=== PATIENT | male | born 1960 | race Caucasian/White ===

== ENCOUNTER → 2018-01-24 00:42 | Outpatient (CLI) | payer MEDICAID, SELFPAY ==
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
== END ==
PROVIDERS: PCP Family Medicine; Visit Provider Family Medicine
DX: Z12.2 Encounter for screening for malignant neoplasm of respiratory organs (principal); Z87.891 Personal history of nicotine dependence
CPT/HCPCS: G0297

== ENCOUNTER 2020-06-02 19:37 | Inpatient (IN) | payer MEDICAID, SELFPAY ==
[2020-06-02] VITALS (16 sets, daily range): BP systolic 131–156; BP diastolic 74–89; PULSE 82–97; RESP 16; TEMP 36.9; O2SAT 80–100
--- NOTE | 2020-06-02 19:45 | DI.CT_ITS ---
EXAM: CT HEAD CERVICAL SPINE WO CLINICAL HISTORY: fall, intoxicated, r/o fx/bleed. TECHNIQUE: Imaging Protocol: Axial computed tomography images with coronal and sagittal reformatted images were created and reviewed COMPARISON: No exams were available for comparison FINDINGS: BRAIN: There are no skull fractures nor fluid in the visualized paranasal sinuses. There is no evidence of intracranial hemorrhage, mass effect, or shift of midline structures. There are no extra-axial fluid collections. The ventricles are not enlarged or shifted and there is no blo od within the ventricular system nor within the basal cisterns. CERVICAL SPINE: There is no evidence of fracture nor listhesis. No significant prevertebral soft tissue swelling. N o facet malalignment evident. In the right lamina of L2 there is a 8 x 6 millimeter lucency which contains air. This is unrelated to trauma. There is degenerative change in the facet joint at this level as well as other facet join ts. There is mild retrolisthesis of C4 on C5 which is most probably related to degenerative changes in the facet joints. There is no evidence of jumped facet.. No evidence of spinal canal stenosis. IMPRESSION: No acute intracranial findings on this noninfused CT scan of the brain. No evidence of cervical spine fracture, malalignment, nor acute compromise of the cervical spinal can al. Degenerative changes throughout the cervical spine including an air containing cyst in the right pedi mary-lamina of C2 which is adjacent to advanced degenerative changes in the right facet joint. RADIATION DOSE DELIVERED: 1,456.22mGy.cm Total DLP DATA REPOSITORY: All CT scans at this facility are submitted to the National Radiology Data Registry (NRDR) Dose Index Registry (DIR) with the [employer] (ACR). RADIATION OPTIMIZATION: All CT scans at this facility use at least one of these dose optimization te chniques: automated exposure control; mA and/or kV adjustment per patient size (includes targeted exa ms where dose is matched to clinical indication); or iterative reconstruction.
--- NOTE | 2020-06-02 19:45 | RT.EKG_ITS ---
APPROVED REPORT Exam: Resting ECG Patient Location: E HR:88 bpm ECG Measurements Heart Rate 88 AXIS OR 181 P 94 QRSd 97 QRS 19 QT 387 T 49 QTc 467 Conclusion Sinus rhythm...normal P axis, V-rate 60- 99 I have reviewed and interpreted ECG and agree with software generated interpretation. No STEMI
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
[2020-06-02 20:13] LABS: Abs Immature Grans 0.02 10^3/uL (0.0-0.06); Absolute Basophil Count 0.06 10^3/uL (0.0-0.2); Absolute Eosinophil Count 0.16 10^3/uL (0.0-0.7); Absolute Lymphocyte Count 2.22 10^3/uL (1.2-3.4); Absolute Monocyte Count 0.77 10^3/uL (0.1-0.8); Absolute Neutrophil Count 3.74 10^3/uL (1.2-6.7); Basophils % 0.9; Eosinophils % 2.3; HCT 37.3 % (40.0-50.0); HGB 12.6 g/dL (13.5-17.5); Immature Grans % 0.3; Lymphocytes % 31.9; MCHC 33.8 % (32.0-36.0); MCV 94.7 fL (80-95); MPV 9.1 fL (8.0-11.0); Neutrophils % 53.6; Nucleated RBC 0 %; Platelet Count 213 10^3/uL (130-400); RBC 3.94 10^6/uL (4.36-5.78); RDW 11.9 % (11.8-14.1); RDW-SD 41.8 fL; WBC 6.97 10^3/uL (4.4-10.8)
[2020-06-02 20:27] LABS: ALT 28 U/L (16-63); AST 29 U/L (15-37); Albumin 3.9 g/dL (3.4-5.0); Alkaline Phosphatase 71 U/L (46-116); Anion Gap 12.5 mmol/L (3-11); BUN 10 mg/dL (7-18); Bilirubin, Total 0.4 mg/dL (0.2-1.0); CO2 19.5 mmol/L (21.0-32.0); CREATININE 0.79 mg/dL (0.70-1.30); Chloride 94 mmol/L (98-107); ETHANOL BLOOD 320.8 mg/dL (<3); Glucose 91 mg/dL (74-106); Potassium 3.8 mmol/L (3.5-5.1); Sodium 126 mmol/L (136-145); Total Protein 7.8 g/dL (6.4-8.2)
--- NOTE | 2020-06-02 21:07 | DI.RAD_ITS ---
EXAM: XR FEMUR LT CLINICAL HISTORY: fall, prox femur pain, r/o fx. TECHNIQUE: 2D digital imaging was performed. COMPARISON: No exams were available for comparison FINDINGS: There is a left hip fracture involving the neck and intertrochanteric region with vertical fracture l ine extending into the subtrochanteric region. Also noted is deformity in mid-lower ipsilateral femur from healed angled fracture site with hardware still evident at this level comprised of 4 screws, 2 of which are fractured. There is, however, no evidence of fracture at this level. There is a launch in the orientated sclerotic medullary bone les ion seen in the distal femur which is either a bone infarct or enchondroma. Advanced degenerative ch anges in the ipsilateral knee are noted. IMPRESSION: Left femoral neck inter-subtrochanteric region fracture. Chronic abnormal findings in the mid-lower ipsilateral femur as described above related to prior heal ed fracture site. DATA REPOSITORY: RADIATION DOSE DELIVERED:
--- NOTE | 2020-06-02 21:07 | DI.RAD_ITS ---
EXAM: XR PELVIS AP CLINICAL HISTORY: fall, prox femur pain, r/o fx. TECHNIQUE: 2D digital imaging was performed. COMPARISON: No exams were available for comparison FINDINGS: There is a fracture of the femoral vxqx-kwqjateqyberqclok-bidcnvdliomlaxv region. Right hip appears unremarkable. No obvious other fractures in the pelvis. IMPRESSION: Left hip fracture. DATA REPOSITORY: RADIATION DOSE DELIVERED:
--- NOTE | 2020-06-02 21:15 | DI.CT_ITS ---
EXAM: CT PELVIC WO CLINICAL HISTORY: r/o left hip fx. TECHNIQUE: Imaging Protocol: Axial computed tomography images with coronal and sagittal reformatted images were created and reviewed CONTRAST MATERIAL: Intravenous: none Oral: None COMPARISON: Plain films reviewed FINDING: PELVIS: OSSEOUS: Is a comminuted fracture of the left femoral neck and intertrochanteric region with some dis placement and fracture extension into the subtrochanteric level. Femoral head is intact and there ar e no acetabular fractures nor fractures of the pubic rami. The right side of the bony pelvis appears unremarkable.. No evidence of right hip fracture.No lytic lesions identified. ANTERIOR ABDOMINAL WALL/GI:No evidence of significant anterior abdominal wall nor inguinal hernia in the pelvis evident.No obvious bowel obstruction. No evidence of appendicitis.No evidence of acute si gmoid diverticulitis.No free fluid in the pelvis. LYMPH NODES: There is no intrapelvic nor inguinal adenopathy. URINARY BLADDER: No calculi nor obvious masses evident REPRODUCTIVE: The prostate gland is not enlarged.. IMPRESSION: 1. Comminuted angulated fracture of the left femoral neck and intertrochanteric region with extension into the subtrochanteric aspect of the left femur. 2. Slight prominence of the ipsilateral ileo psoas muscle probably related to strain 3. RADIATION DOSE DELIVERED: 461.96mGy.cm Total DLP DATA REPOSITORY: All CT scans at this facility are submitted to the National Radiology Data Registry (NRDR) Dose Index Registry (DIR) with the [employer] (ACR). RADIATION OPTIMIZATION: All CT scans at this facility use at least one of these dose optimization te chniques: automated exposure control; mA and/or kV adjustment per patient size (includes targeted exa ms where dose is matched to clinical indication); or iterative reconstruction.
--- NOTE | 2020-06-02 21:26 | DI.VRAD_ITS ---
PROCEDURE INFORMATION: Exam: XR Pelvis Exam date and time: 06/02/2020 9:05 PM Age: 59 years old Clinical indication: Injury or trauma; Fall; Blunt trauma (contusions or hematomas); Left; Hip TECHNIQUE: Imaging protocol: XR pelvis. Views: 1 or 2 view. COMPARISON: No relevant prior studies available. FINDINGS: There is a lucency running through the subtrochanteric region of the left femur. This could represent a nondisplaced fracture. Bony pelvis appears intact. The hip joints are well maintained. Pubic rami are unremarkable. IMPRESSION: 1. Lucency involving the subtrochanteric region of the left femur. This could represent a nondisplaced fracture. 2. The remainder of the bony pelvis is unremarkable Dictated and Authenticated by: Lucian Slater MD. Ordering:JOAN Garza MD
--- NOTE | 2020-06-02 21:28 | DI.VRAD_ITS ---
PROCEDURE INFORMATION: Exam: XR Left Femur Exam date and time: 06/02/2020 9:06 PM Age: 59 years old Clinical indication: Injury or trauma; Fall; Blunt trauma; Hip and thigh or upper leg; Left; Injury details: Best imaging possible d/t PT rom; Prior surgery TECHNIQUE: Imaging protocol: XR Left femur. Views: 2 views. COMPARISON: No relevant prior studies available. FINDINGS: As noted on the pelvis film, there is a lucency involving the subtrochanteric region of the left femur. This could represent a nondisplaced fracture. One the may wish to correlate with CT. Femoral head neck appear intact. There is a old healed fracture of the distal femur. Multiple screws are present. There is a skin area of sclerosis involving the distal femur which could represent a bone infarct. There are marked degenerative changes of the knee joint. IMPRESSION: 1. Lucency involving the subtrochanteric region of the left femur. This could represent a nondisplaced fracture. One may wish to correlate with CT. 2. Old healed fracture of the distal femoral shaft. Dictated and Authenticated by: Lucian Slater MD. Ordering:JOAN Garza MD
--- NOTE | 2020-06-02 21:56 | DI.VRAD_ITS ---
PROCEDURE INFORMATION: Exam: CT Head Without Contrast Exam date and time: 06/02/2020 8:41 PM Age: 59 years old Clinical indication: Injury or trauma; Blunt trauma (contusions or hematomas); Consciousness not specified; Injury date: 06/02/20; Injury details: Fall, +etoh, TECHNIQUE: Imaging protocol: Computed tomography of the head without contrast. Radiation optimization: All CT scans at this facility use at least one of these dose optimization techniques: automated exposure control; mA and/or kV adjustment per patient size (includes targeted exams where dose is matched to clinical indication); or iterative reconstruction. COMPARISON: No relevant prior studies available. FINDINGS: Brain: There is no acute intracranial hemorrhage, mass effect or midline shift.There is no large acute territorial cerebral infarct. Focal hyperdensity in the left temporal lobe region is thought to represent choroid plexus calcification. Cerebral ventricles: No ventriculomegaly. Bones/joints: There is slight displacement of the left nasal bone, which may be acute or chronic in nature. Paranasal sinuses: Visualized sinuses are unremarkable. No fluid levels. Mastoid air cells: There is trace fluid in the right mastoid air cells. Soft tissues: Unremarkable. IMPRESSION: 1. No acute intracranial hemorrhage, mass effect or midline shift. 2. Slight displacement of the left nasal bone may be from acute or chronic injury. Correlate with clinical findings. PROCEDURE INFORMATION: Exam: CT Cervical Spine Without Contrast Exam date and time: 06/02/2020 8:41 PM Age: 59 years old Clinical indication: Injury or trauma; Blunt trauma (contusions or hematomas); Consciousness not specified; Injury date: 06/02/20; Injury details: Fall, +etoh, TECHNIQUE: Imaging protocol: Computed tomography images of the cervical spine without contrast. Radiation optimization: All CT scans at this facility use at least one of these dose optimization techniques: automated exposure control; mA and/or kV adjustment per patient size (includes targeted exams where dose is matched to clinical indication); or iterative reconstruction. COMPARISON: No relevant prior studies available. FINDINGS: Bones/joints: No acute fracture. There is grade 1 retrolisthesis of C4 on C5. A 1 cm cyst containing foci of air is seen in the right facet of C2. Discs/Spinal canal/Neural foramina: Multilevel degenerative changes are noted with neural foraminal narrowing most prominent at the left C3-C4 level. No significant spinal canal stenosis. Lungs: Lung apices are normal. Soft tissues: Unremarkable. IMPRESSION: No acute fracture. Dictated and Authenticated by: Kayla Matta MD. Ordering:JOAN Garza MD
--- NOTE | 2020-06-02 22:10 | DI.VRAD_ITS ---
PROCEDURE INFORMATION: Exam: CT Pelvis Without Contrast; Skeletal Exam date and time: 06/02/2020 9:30 PM Age: 59 years old Clinical indication: Injury or trauma; Blunt trauma (contusions or hematomas); Injury date: 06/02/20; Injury details: Fall, left hip pain TECHNIQUE: Imaging protocol: Computed tomography images of the pelvis without contrast. Exam focused on the skeletal structures. Radiation optimization: All CT scans at this facility use at least one of these dose optimization techniques: automated exposure control; mA and/or kV adjustment per patient size (includes targeted exams where dose is matched to clinical indication); or iterative reconstruction. COMPARISON: CR XR PELVIS AP 06/02/2020 8:49 PM FINDINGS: There is a comminuted fracture involving the femoral neck and intertrochanteric region. There is slight posterior displacement of the greater trochanter. There is extension into the subtrochanteric region. There is slight lateral angulation. Femoral head is intact. The acetabulum pubic rami are intact. The right side of the bony pelvis appears intact. There is some edema within the left adductor muscles likely representing a tear or strain. There is some mild edema of the subcutaneous fat. IMPRESSION: 1. Comminuted angulated fracture involving the femoral neck and intertrochanteric region with extension into the subtrochanteric femoral shaft. 2. Edema of the adductor muscles likely representing strain or tear. Dictated and Authenticated by: Lucian Slater MD. Ordering:JOAN Garza MD
[2020-06-02 22:25] LABS: Source Nasopharynx
[2020-06-02 23:05] LABS: COVID-19 PCR Negative (Negative); Influenza A PCR Negative (Negative); Influenza B PCR Negative (Negative); RSV PCR Negative (Negative)
[2020-06-03] VITALS (21 sets, daily range): BP systolic 107–193; BP diastolic 65–130; PULSE 69–97; RESP 14–19; TEMP 35–37.9; O2SAT 93–100
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
[2020-06-03] MEDS: Normal Saline 500 ML IV (00:39)
[2020-06-03] MEDS: Normal Saline Flush 10 ML SYR (01:43)
[2020-06-03] MEDS: Pantoprazole 40 MG VIAL IVP (01:44)
[2020-06-03] MEDS: Normal Saline 1,000 ML 150 ML IV (01:44)
[2020-06-03] MEDS: ACETAMINOPHEN 1,000 MG/100 ML BTL 400 MG IVPB ×4 (01:45→19:51)
[2020-06-03] MEDS: Thiamine 200 MG/2 ML VIAL (01:50)
[2020-06-03] MEDS: MAGNESIUM SULFATE 8.12 MEQ, MULTIVITAMIN 10 ML, THIAMINE 100 MG, FOLIC ACID 1 MG in Nor... 168.867 MG IV (02:05)
[2020-06-03] MEDS: Folic Acid 50 MG/10 ML VIAL (02:13)
--- NOTE | 2020-06-03 02:20 | NUR.NOTE ---
Patient undergarment and gown is wet. Patient was asked numerous times to be changed but refused each time he is asked
[2020-06-03 06:46] LABS: Abs Immature Grans 0.03 10^3/uL (0.0-0.06); Absolute Basophil Count 0.05 10^3/uL (0.0-0.2); Absolute Eosinophil Count 0.18 10^3/uL (0.0-0.7); Absolute Lymphocyte Count 2.46 10^3/uL (1.2-3.4); Absolute Monocyte Count 0.91 10^3/uL (0.1-0.8); Absolute Neutrophil Count 4.76 10^3/uL (1.2-6.7); Basophils % 0.6; Eosinophils % 2.1; HCT 36.2 % (40.0-50.0); HGB 12.3 g/dL (13.5-17.5); Immature Grans % 0.4; Lymphocytes % 29.3; MCH 31.7 pg (27.0-33.0); MCV 93.3 fL (80-95); MPV 9.2 fL (8.0-11.0); Monocytes % 10.8; Neutrophils % 56.8; Nucleated RBC 0 %; Platelet Count 214 10^3/uL (130-400); RBC 3.88 10^6/uL (4.36-5.78); RDW 11.9 % (11.8-14.1); RDW-SD 40.5 fL; WBC 8.39 10^3/uL (4.4-10.8)
[2020-06-03] MEDS: Normal Saline Flush 10 ML SYR IVP ×3 (06:48→13:18)
[2020-06-03 06:57] LABS: Anion Gap 12.8 mmol/L (3-11); BUN 8 mg/dL (7-18); CO2 17.2 mmol/L (21.0-32.0); CREATININE 0.79 mg/dL (0.70-1.30); Calcium 8.1 mg/dL (8.5-10.1); Chloride 107 mmol/L (98-107); Glucose 58 mg/dL (74-106); Sodium 137 mmol/L (136-145)
[2020-06-03 07:02] LABS: ETHANOL BLOOD 103.4 mg/dL (<3)
[2020-06-03] MEDS: DEXTROSE 5%-0.9% SALINE 1,000 ML 100 ML IV (07:30)
[2020-06-03] MEDS: Budesonide/Formoterol 80/4.5 10.2 GM 120 PUFF INH IH ×2 (09:18→19:52)
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
--- NOTE | 2020-06-03 13:15 | DI.RAD_ITS ---
EXAM: XR HIP LT IN OR CLINICAL HISTORY: left TFNA TECHNIQUE: 2D and realtime digital imaging was performed. CONTRAST MATERIAL: Refer to procedure report. COMPARISON: No exams were available for comparison FINDINGS: Fluoroscopy was provided for Dr. Dickson during the performance of a reduction and internal fixatio n left femoral fracture. Please refer to the procedure report for complete details. Fluoro time: 96.4 seconds IMPRESSION: RADIATION DOSE DELIVERED:
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
--- NOTE | 2020-06-03 15:53 | PHA.REVIEW ---
Pharmacy Admission Review - Admission Clinical Review (Last Reviewed 06/03/20 @ 10:16 by Jackson Dickson MD) Closed fracture of left hip (Acute) Acute hyponatremia (Acute) Alcohol intoxication (Acute) iodine Allergy (Mild, Unverified 06/02/20 19:48) Iodinated Contrast Media [Iodinated Contrast- Oral and IV Dye] Allergy (Unknown, Unverified 06/02/20 19:48) scallops Allergy (Unverified 06/02/20 19:48) Anaphylaxsis CARLOS Inhibitors Adverse Reaction (Unknown, Unverified 06/02/20 19:48) COUGH corn on the cob Adverse Reaction (Intermediate, Uncoded 06/02/20 19:48) Height 5 ft 6 in Weight 64.3 kg - Renal Dosing Renal Dosing: BUN 8 mg/dL (7-18) 06/03/20 06:36 Creatinine 0.79 mg/dL (0.70-1.30) 06/03/20 06:36 Medications needing adjustments: Reviewed (Crcl ~87 mL/min current meds okay) - Anticoagulation Anticoagulation: Hgb 12.3 g/dL (13.5-17.5) L 06/03/20 06:36 Hct 36.2 % (40.0-50.0) L 06/03/20 06:36 Plt Count 214 10^3/uL (130-400) 06/03/20 06:36 Creatinine 0.79 mg/dL (0.70-1.30) 06/03/20 06:36 DVT Prohphylaxis: Reviewed (watch for order postop) - Opiate Usage Evaluate Pain Scale/Pains Meds: Reviewed Scheduled Bowel Reg ordered if on Opiates?: No (has PRN meds ordered) - Relevant Labs Sodium 137 mmol/L (136-145) D 06/03/20 06:36 Potassium 4.0 mmol/L (3.5-5.1) 06/03/20 06:36 Chloride 107 mmol/L (98-107) 06/03/20 06:36 Magnesium 2.0 mg/dL (1.8-2.4) 06/03/20 06:36 Electrolytes, C-Reactive P, ESR: Reviewed - DM Control DM Control: Glucose 58 mg/dL (74-106) L 06/03/20 06:36 Finger Stick Blood Glucose 80 Insulin Dosing: N/A (BG was low this morning, IV fluids with dextrose ordered) - Heart Failure/NH EF%, CARLOS's, B-Blockers, Diuretics: N/A - BP Control BP Control: Blood Pressure 144/77 Blood Pressure 113/65 Blood Pressure 117/70 If elevated: Reviewed (BP has been normal to high so far this admission) - Qtc Review If Elevated: N/A (QTc 467 on admission) - IV to PO Switch IV Medications: Reviewed - Home Meds Home Med List reviewed: Reviewed Relevent Home Meds Not ordered & why?: glucosamine/chondroitin, ibuprofen (PRN), multivitamin - Current meds Current Medication Order Review: Intervened (Adjusted timing of acetaminophen dosing as was not on an even hour and previous dose had been given late.) - Comments Comments/Follow Ups: Pt. to have surgery today per morning report. Watch BP, BG, labs and for med changes (possible anticoagulation postop, IV to PO, home meds).
[2020-06-03] MEDS: ceFAZolin 2 GM/50 ML BAG IVPB (15:57)
[2020-06-03] MEDS: Bupivacaine 0.25% Pres-Free 30 ML VIAL (16:19)
[2020-06-03] MEDS: Ketorolac 30 MG/ML VIAL (16:20)
[2020-06-03] MEDS: Lactated Ringers 1,000 ML 30 ML IV (17:00)
[2020-06-03] MEDS: fentaNYL 100 MCG/2 ML VIAL IVP (17:14)
[2020-06-03] MEDS: HYDROmorphone 2 MG/ML VIAL IVP (17:19)
[2020-06-03] MEDS: ceFAZolin 1 GM/50 ML BAG IVPB (19:55)
--- NOTE | 2020-06-03 21:37 | ROE_ITS ---
Date of service: 06/03/20 Time of Service: 16:53 Operative Note Operative Note DATE OF PROCEDURE: 06/03/20 PRE-OP DIAGNOSIS: Comminuted Left Intertrochanteric Femur Fracture POST-OP DIAGNOSIS: same PROCEDURE: Left Intramedullary Fixation of Proximal Femur Fracture SURGEON: Jackson Dickson GLOBAL TRANSPORTATION MANAGER: Karla Child ANESTHESIA: GETA ESTIMATED BLOOD LOSS: 20 PATHOLOGY: none sent COMPLICATIONS: None Patient was transported to: PACU Patient's condition: stable Implants: Depuy-Synthes TFNA 11mm x 170mm Indications: Robert is a 59 year old who presented to the Emergency Department after a fall. X-rays confirmed the diagnosis of a basicervical/intertrochanteric fracture of the proximal femur. I reviewed the possible treatment options and given the fracture of the femur, I recommened operative fixation. I discussed the technical details of the surgery. I reviewed the risks such as bleeding, infection, pain, stiffness, malunion, nonunion, hardware prominence, hardware faiilure, malrotation, avascular necrosis, blood clot. Despite these risks, he agreed to proceed. Findings: There was a fracture of the proximal femur which was able to be reduced with traction and internal rotation and external manipulation. Procedure Description: Robert was greeted in the preoperative area. Consent was previously reviewed and signed. Once in the operating room, anesthesia was administered. The patient was transferred to the fracture table in the supine position. He was positioned onto the perineal post. All bony prominences were well padded. The arm of the operative side was then placed across the chest and secured. The nonoperative leg was scissored and secured to the traction boom with a pillow and tape. The operative limb was placed in the traction boot and padded and secured. A gentle reduction was then performed with traction and internal rotation and gentle external manipulation. A single dose of TXA, 1 gram, was then administered IV. Prophylactic antibiotics, Cefazolin 2 grams, was given for prophylactic antibiotics. A timeout was performed for safe surgery. The left leg was prepped with Chloraprep. A shower curtain drape was placed. Using fluoroscopy, the starting point was marked over the lateral hip, proximal to the tip of the greater trochanter. A 3cm incision was made through skin and the fascia of the gluteus musculature until the tip of the trochanter was palpable. The starting wire was placed onto the tip, just slightly on the media aspect, and centered in the AP plane. Using a umu, the starting guide wire was buried into the bone. A lateral x-ray confirmed appropriate position and the guidewire was advanced to the level of the lesser trochanter. With a tissue protector, the proximal femur was opened with the opening reamer. The short TFNA was chosen for this case and a Synthes TFNA [id number] nail was selected and opened on the back table. The nail was assembled to the aiming arm on the back table and confirmed to be aligned with the triple sleeve for blade insertion. Using manual force the nail was advanced into the femur. A few light mallet blows advanced the nail down to a previous screw in the femur. The screw was unicortical and small, so I continued with light mallet taps on the nail. This advanced without issue adjusting its path slightly and slightly pushing the screw out of the way. Without difficulty, I was able to advance the nail to its appropriate position. The triple sleeve was inserted through the targeting arm and the skin, soft tissue, and IT band was then incised. The triple sleeve was advanced down to the lateral femur. A guidewire was advanced into the femoral head where it was noted to be centered. A lateral x-ray was used to confirm centered positioning on the lateral. Happy with the length of the guidewire, this was measured. A 100mm helical blade was opened. The lateral cortex was opened and the path of the blade was reamed with a tapered reamer to appropriate depth. The helical blade was malletted into position and confirmed to be appropriately located on fluoroscopy. The set screw was advanced to a half turn shy of fully tightened, allowing for the helical blade to slide. The fracture was compressed before removing the targeting device. The targeting device was removed. AP and lateral x-rays of the hip confirmed appropriate positioning within the femur and with good alignment of the fracture. Using the targeting arm, the skin was incised for placement of the distal locking screw. The trochar was inserted through the skin and IT band down onto the lateral cortex of the femur. The 4.2mm drill was advanced across the femur and through the nail. This was measured and an appropriately sized 5.0mm screw was placed. The targeting arm was removed. Final x-rays were obtained. The wounds were thoroughly irrigated. A cocktail consisting of 50cc of 0.5% bupivacaine, 30mg Ketorolac, and 10cc of Exparel was injected throughout the wounds both deep and superficially. The deep fascia of the proximal two wounds was reapproximated with a 0 Vicryl. The deep tisses were closed with a 2-0 Vicryl and the skin was closed with a running subcuticular Monocryl. The wounds were dressed with a Mepilex silver dressing. At the end of the case, all counts were correct. Robert tolerated the procedure well without known complication and was taken to the PACU for recovery. Physical therapy will start post-operatively, weigh-bearing as tolerated with assistive devices. Anticoagulation will start within 12-24 hours. 3 doses of post-operative antibitiocis for prophylaxis will be administered.
[2020-06-04] VITALS (10 sets, daily range): BP systolic 113–151; BP diastolic 52–85; PULSE 66–84; RESP 17–20; TEMP 36.6–37.4; O2SAT 95–99
[2020-06-04] MEDS: ACETAMINOPHEN 1,000 MG/100 ML BTL 400 MG IVPB ×2 (01:30→07:50)
[2020-06-04] MEDS: Normal Saline 1,000 ML 150 ML IV ×2 (01:58→09:29)
[2020-06-04] MEDS: ceFAZolin 1 GM/50 ML BAG IVPB ×2 (04:04→12:28)
[2020-06-04] MEDS: Ketorolac 15 MG/ML VIAL IVP ×4 (06:32→23:39)
[2020-06-04] MEDS: Normal Saline Flush 10 ML SYR IVP ×3 (06:32→18:05)
--- NOTE | 2020-06-04 07:20 | W.PM.PROGNOT ---
Date of Service Date of service: 06/04/20 Time of Service: 07:20 Assessment and Plan Assessment and plan (1) Closed fracture of left hip: Status: Acute Assessment and plan: Robert is a 59-year-old who is status post intramedullary nail fixation of a comminuted proximal femur fracture on the left. His pain appears to be well controlled. However, he does have pain with motion and therefore I would premedicate prior to any physical therapy activities this morning. He does have this weakness about the left leg which I think is simply inhibitory due to pain and the recent surgery. The muscle groups and nerves which would power these are not in proximity to the surgical site. We will proceed with physical therapy this morning. He is weightbearing as tolerated with assistive devices. We should start anticoagulation, Lovenox in house, and aspirin on discharge. He is showing no signs of acute alcohol withdrawal and is considered stable medically may transfer to orthopedic service if desired. My anticipation for him is to be in the hospital for another day or 2 before discharge to home with home health services. Qualifiers: Encounter type: initial encounter Qualified Code(s): S72.002A - Fracture of unspecified part of neck of left femur, initial encounter for closed fracture Subjective Subjective Interval history since last seen: Robert reports be doing well. He does have some pain with motion but he is able to move in bed more than he was from before surgery. He feels that the left leg is weaker than it was a he has difficulties with elevating and flexing the left hip and extending the left knee. Exam Narrative Exam Narrative: Sitting up in the bed. Left hip dressings are clean dry and intact. He does demonstrate active dorsiflexion plantarflexion of the left foot as well as extension and flexion of the great toe. He does have some activation of the quad muscle but is quite weak and unable to straight leg raise. He tolerates internal and external rotation of the left hip without significant pain. Objective Last Vital Signs Temp 37.2 C 06/04/20 07:05 Pulse 67 06/04/20 07:05 Resp 17 06/04/20 07:05 BP 124/74 06/04/20 07:05 Pulse Ox 97 06/04/20 07:05
[2020-06-04] MEDS: Budesonide/Formoterol 80/4.5 10.2 GM 120 PUFF INH IH ×2 (07:45→19:48)
[2020-06-04] MEDS: oxyCODONE 5 MG TAB PO ×2 (07:51→13:04)
[2020-06-04] MEDS: Docusate Sodium 100 MG CAP PO (07:51)
[2020-06-04] MEDS: Folic Acid 1 MG TAB PO (07:51)
[2020-06-04] MEDS: Thiamine 100 MG TAB PO (07:51)
[2020-06-04] MEDS: Multivitamin TAB 1 TAB PO (07:52)
[2020-06-04] MEDS: Pantoprazole 40 MG VIAL IVP (07:52)
[2020-06-04] MEDS: Enoxaparin 40 MG/0.4 ML SYR SC (08:01)
[2020-06-04 08:26] LABS: Abs Immature Grans 0.03 10^3/uL (0.0-0.06); Absolute Basophil Count 0.02 10^3/uL (0.0-0.2); Absolute Lymphocyte Count 0.83 10^3/uL (1.2-3.4); Absolute Monocyte Count 1.09 10^3/uL (0.1-0.8); Absolute Neutrophil Count 7.49 10^3/uL (1.2-6.7); Basophils % 0.2; HGB 9.5 g/dL (13.5-17.5); Immature Grans % 0.3; Lymphocytes % 8.8; MCH 32.2 pg (27.0-33.0); MCHC 33.9 % (32.0-36.0); MCV 94.9 fL (80-95); MPV 9.4 fL (8.0-11.0); Monocytes % 11.5; Neutrophils % 79.2; Nucleated RBC 0 %; Platelet Count 181 10^3/uL (130-400); RBC 2.95 10^6/uL (4.36-5.78); RDW 12.2 % (11.8-14.1); RDW-SD 42.9 fL; WBC 9.46 10^3/uL (4.4-10.8)
[2020-06-04 08:31] LABS: Anion Gap 8.9 mmol/L (3-11); BUN 10 mg/dL (7-18); CO2 22.1 mmol/L (21.0-32.0); CREATININE 0.92 mg/dL (0.70-1.30); Calcium 8.1 mg/dL (8.5-10.1); Chloride 106 mmol/L (98-107); Glucose 158 mg/dL (74-106); Magnesium 1.9 mg/dL (1.8-2.4); Potassium 3.6 mmol/L (3.5-5.1); Sodium 137 mmol/L (136-145)
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
--- NOTE | 2020-06-04 09:51 | W.NUTRFU ---
Date of service: 06/04/20 Time of Service: 09:51 Nutritional Follow up NOTE: 59 yo male admitted for left hip fracture s/p surgical repair. Hx of ETOH abuse, HTN. BMI wnl and stable > 1 year. Diet advanced to regular diet and tolerated. MVI, folate and thiamin ordered for repletion. Does not appear at nutritional risk at this time. Will continue to follow. Time Spent in Nutritional Counseling and Treatment: 0
--- NOTE | 2020-06-04 11:36 | W.PM.PROGNOT ---
Date of Service Date of service: 06/04/20 Time of Service: 11:36 Assessment and Plan Assessment and plan (1) Closed fracture of left hip: Status: Acute Assessment and plan: post op day 1, continue routine post operative care. PT/OT, pulmonary toilet, pain management, bowel management. discontinue IVF walking in johnson and doing well. no post operative issues. Qualifiers: Encounter type: initial encounter Qualified Code(s): S72.002A - Fracture of unspecified part of neck of left femur, initial encounter for closed fracture (2) Acute hyponatremia: Status: Resolved Assessment and plan: resolved. (3) Alcohol intoxication: Status: Acute Assessment and plan: no score on ciwa. continue vitamin supplements (4) Anemia, blood loss: Status: Acute Assessment and plan: operative blood loss, no evidence of active bleeding add supplemental iron. (5) DVT prophylaxis: Status: Acute Assessment and plan: per orthopedics enoxaparin daily for one month. (6) Discharge planning issues: Status: Acute Assessment and plan: plan for home tomorrow with no services. discussed with DR Rodríguez Subjective Subjective Patient reports: no new complaints, feels better, pain is less, tolerating liquids well, tolerating a regular diet, voiding w/o difficulty, no bowel movement and afebrile; denies shortness of breath Interval history since last seen: progressing well with physical therapy. Exam Const General: cooperative, healthy appearing, comfortable and no acute distress Nutritional Appearance: average body habitus Orientation: alert, awake and oriented x3 HENMT Head: normal to inspection, normocephalic and atraumatic Mouth: oral mucosae normal Neck Neck: normal visual inspection Chest Chest: normal inspection of the chest Resp Effort & Inspection: normal respiratory effort Auscultation: clear to auscultation bilaterally Cardio Rate: regular rate Rhythm: regular rhythm GI Inspection: normal to inspection Palpation: soft Auscultation: normal bowel sounds Skin Lesions: lesion noted (2 surgical dressings clean and intact, no drainage no erythema) Rashes: no rashes Neuro General: patient alert, patient awake, patient oriented x3, moves all extremities and no focal motor deficits Extrem General: normal to inspection (good pedal pulses and sensation bilaterally) and no pedal edema Psych Appearance: grossly normal Mental Status: mental status grossly normal Speech and Movement: speech and movement normal Mood: congruent mood Affect: normal affect Attitude: cooperative Thought Process: normal Thought Content: normal Insight: insight good Judgment: judgment good Objective Last Vital Signs Temp 36.6 C 06/04/20 11:30 Pulse 73 06/04/20 11:30 Resp 17 06/04/20 11:30 BP 144/82 H 06/04/20 11:30 Pulse Ox 96 06/04/20 11:30 Laboratory Results - last 24 hr 06/04/20 06/04/20 08:10 08:10 WBC 9.46 RBC 2.95 L Hgb 9.5 L D Hct 28.0 L D MCV 94.9 MCH 32.2 MCHC 33.9 RDW 12.2 Plt Count 181 MPV 9.4 Immature Gran % 0.3 Neutrophils % 79.2 Lymphocytes % 8.8 Monocytes % 11.5 Eosinophils % 0.0 Basophils % 0.2 Nucleated RBC % 0 Absolute Neutrophils 7.49 H Absolute Lymphocytes 0.83 L Absolute Monocytes 1.09 H Absolute Eosinophils 0.00 Absolute Basophils 0.02 Sodium 137 Potassium 3.6 Chloride 106 Carbon Dioxide 22.1 Anion Gap 8.9 BUN 10 Creatinine 0.92 Estimated GFR/1.73 m2 >= 60.00 Glucose 158 H D Calcium 8.1 L Magnesium 1.9
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
[2020-06-04] MEDS: Polyethylene Glycol 3350 17 GM PACKET PO (12:27)
[2020-06-04] MEDS: Ferrous Sulfate 325 MG TAB PO ×2 (12:28→19:47)
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
[2020-06-04] MEDS: Acetaminophen 500 MG TAB 1000 MG PO ×2 (14:18→21:27)
--- NOTE | 2020-06-04 15:43 | PTTR_ITS ---
Date of service: 06/04/20 Time of Service: 13:00 PT Notes Visit Reasons: LEFT HIP FRACTURE Inpatient Physical Therapy Treatment Note [facility] Date: 06/04/2020 PRECAUTIONS: Fall, WBAT L SUBJECTIVE: Robert is pleasant and agreeable to participating in PT. OBJECTIVE: PAIN: Patient c/o L hip pain increasing with activity. BED MOBILITY/TRANSFERS Supine-sit: S with HOB flat with use of leg physician practice coordinator Sit-supine: S with HOB flat with use of leg physician practice coordinator Sit-stand: S Stand-sit: S GAIT Assistive Device: FWW Weight bearing: WBAT L Assist: SBA Distance: 200' Deviation: Step-through, c/o B UE soreness with FWW use THEREX: Patient was instructed in several LE strengthening exercises, in a seated position, as per flow sheet. TOILETING: Patient toileted with supervision ASSESSMENT: Patient tolerated session well with minimal c/o increased L hip pain with activity. He tolerated gait training with increased SOB, requiring several standing rests. PLAN: Continue with gait training and global strengthening for improved mobility. TREATMENT CODE/TIME: 30 minutes; 95296, [id number]
[2020-06-04] MEDS: DEXTROSE 5%-0.9% SALINE 1,000 ML 100 ML IV (18:00)
[2020-06-04] MEDS: Ascorbic Acid 500 MG TAB 250 MG PO (19:47)
[2020-06-05 02:39] VITALS: RESP 19
[2020-06-05] MEDS: DEXTROSE 5%-0.9% SALINE 1,000 ML 100 ML IV (03:31)
[2020-06-05 03:34] VITALS: BP 142/84; PULSE 76; RESP 18; TEMP 36.7; O2SAT 98
[2020-06-05 06:12] VITALS: BP 144/87; PULSE 73; RESP 18; TEMP 36.7; O2SAT 98
[2020-06-05] MEDS: Ketorolac 15 MG/ML VIAL IVP ×2 (06:16→12:01)
[2020-06-05] MEDS: Acetaminophen 500 MG TAB 1000 MG PO (06:16)
[2020-06-05 06:57] LABS: Abs Immature Grans 0.02 10^3/uL (0.0-0.06); Absolute Basophil Count 0.03 10^3/uL (0.0-0.2); Absolute Eosinophil Count 0.09 10^3/uL (0.0-0.7); Absolute Monocyte Count 0.89 10^3/uL (0.1-0.8); Absolute Neutrophil Count 4.04 10^3/uL (1.2-6.7); Basophils % 0.4; Eosinophils % 1.3; HCT 27.2 % (40.0-50.0); Immature Grans % 0.3; Lymphocytes % 25.1; MCHC 33.1 % (32.0-36.0); MCV 96.8 fL (80-95); MPV 9.9 fL (8.0-11.0); Monocytes % 13.1; Neutrophils % 59.8; Nucleated RBC 0 %; Platelet Count 171 10^3/uL (130-400); RBC 2.81 10^6/uL (4.36-5.78); RDW 12.5 % (11.8-14.1); RDW-SD 44.4 fL; WBC 6.77 10^3/uL (4.4-10.8)
[2020-06-05 07:01] LABS: Anion Gap 8.3 mmol/L (3-11); BUN 7 mg/dL (7-18); CO2 24.7 mmol/L (21.0-32.0); Calcium 7.9 mg/dL (8.5-10.1); Chloride 111 mmol/L (98-107); Glucose 113 mg/dL (74-106); Magnesium 1.7 mg/dL (1.8-2.4); Potassium 3.6 mmol/L (3.5-5.1); Sodium 144 mmol/L (136-145)
[2020-06-05 07:07] VITALS: BP 125/77; PULSE 77; RESP 18; TEMP 36.5; O2SAT 97
[2020-06-05] MEDS: Budesonide/Formoterol 80/4.5 10.2 GM 120 PUFF INH IH (07:19)
[2020-06-05] MEDS: Enoxaparin 40 MG/0.4 ML SYR SC (08:22)
[2020-06-05] MEDS: Thiamine 100 MG TAB PO (08:23)
[2020-06-05] MEDS: Ferrous Sulfate 325 MG TAB PO (08:23)
[2020-06-05] MEDS: Multivitamin TAB 1 TAB PO (08:23)
[2020-06-05] MEDS: Pantoprazole 40 MG TABCR PO (08:23)
[2020-06-05] MEDS: Folic Acid 1 MG TAB PO (08:23)
[2020-06-05] MEDS: MAGNESIUM SULFATE 2 GM/50 ML BAG IVPB (08:24)
[2020-06-05] MEDS: Normal Saline Flush 10 ML SYR IVP ×2 (08:24→12:02)
[2020-06-05] MEDS: Polyethylene Glycol 3350 17 GM PACKET PO (08:24)
[2020-06-05] MEDS: Ascorbic Acid 500 MG TAB 250 MG PO (08:26)
[2020-06-05] MEDS: oxyCODONE 5 MG TAB PO ×2 (08:37→13:05)
--- NOTE | 2020-06-05 11:29 | PTTR_ITS ---
Date of service: 06/05/20 Time of Service: 09:20 PT Notes Visit Reasons: LEFT HIP FRACTURE Inpatient Physical Therapy Treatment Note [facility] Date: 06/05/2020 PRECAUTIONS: WBAT L, Fall SUBJECTIVE: Robert is pleasant and agreeable to participating in PT. He states that he is a little nervous about going home and how he will do once he is there, but states that his and daughter really want him home. OBJECTIVE: PAIN: Patient c/o L hip pain with bed mobility and ther ex. BED MOBILITY/TRANSFERS Supine-sit: I with HOB flat and use of leg hinging machine operator Sit-supine: I with HOB flat Sit-stand: S Stand-sit: S GAIT Assistive Device: FWW Weight bearing: WBAT L Assist: S Distance: 300' Deviation: Step-through gait pattern THEREX: Patient was instructed in a LE strengthening and stabilization program, in a long-sitting position, as per flow sheet. TOILETING: Patient toileted independently ASSESSMENT: Patient tolerated session with complaint of L hip pain with bed mobility and ther ex. He was able to tolerate a progression in gait distance with FWW support and supervision. PLAN: Continue global strengthening via out-patient PT upon discharge. TREATMENT CODE/TIME: 30 minutes; 20248, [id number]
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
--- NOTE | 2020-06-05 13:06 | W.PM.PROGNOT ---
Date of Service Date of service: 06/05/20 Time of Service: 12:06 Assessment and Plan Assessment and plan (1) Closed fracture of left hip: Status: Acute Assessment and plan: Robert is doing well s/p L hip fracture fixation. He is moving well. I encouraged him to slowly incrase activity but expressed that it will take some time to get better as the bone heals. He should use an assistive device. He may discharge to home. Aspirin recommended for DVT prophylaxis. Qualifiers: Encounter type: initial encounter Qualified Code(s): S72.002A - Fracture of unspecified part of neck of left femur, initial encounter for closed fracture Subjective Subjective Interval history since last seen: Robert reports to be doing well. He has been able to ambulate with minimal assistance. He has had some pain but it has been controlled. He feels that the weakness with hip flexion and knee extension has improved. He denies any issue with the dressing. He denies chest pain or SOB. Exam Narrative Exam Narrative: Sitting up in the chair. AAOx3. NAD. LLE dressing c/d/i. Mild pain to palpation anteriorly and laterally. Weak, but intact, knee extension and hip flexion. +ADF/APF/EHL/FHL. SILT DP/SP/Tib. +DP/PT. Objective Last Vital Signs Temp 36.5 C 06/05/20 07:07 Pulse 77 06/05/20 07:07 Resp 18 06/05/20 07:07 BP 125/77 06/05/20 07:07 Pulse Ox 97 06/05/20 07:07 Laboratory Results - last 24 hr 06/05/20 06/05/20 06:10 06:10 WBC 6.77 RBC 2.81 L Hgb 9.0 L Hct 27.2 L MCV 96.8 H MCH 32.0 MCHC 33.1 RDW 12.5 Plt Count 171 MPV 9.9 Immature Gran % 0.3 Neutrophils % 59.8 Lymphocytes % 25.1 Monocytes % 13.1 Eosinophils % 1.3 Basophils % 0.4 Nucleated RBC % 0 Absolute Neutrophils 4.04 Absolute Lymphocytes 1.70 Absolute Monocytes 0.89 H Absolute Eosinophils 0.09 Absolute Basophils 0.03 Sodium 144 Potassium 3.6 Chloride 111 H Carbon Dioxide 24.7 Anion Gap 8.3 BUN 7 Creatinine 0.90 Estimated GFR/1.73 m2 >= 60.00 Glucose 113 H Calcium 7.9 L Magnesium 1.7 L
--- NOTE | 2020-06-05 14:40 | CMDISCH_ITS ---
- If Service Date Differs Date of service: 06/05/20 Time of Service: 14:40 LACE Index Scoring Tool - Questions: Length of Stay (in days): 3 Acuity (Admit via E.D.?): Yes E.D. Visits: 1 - Answers: Total Score: 7 Risk of Readmission: Low Risk Care Management Discharge Reason for Hospitalization: Closed fracture left hip Discharge Plan: Rboert will be discharged home with no new services. He will follow up with his orthopedic surgeon, PCP and discharge plan of care. Robert w ill transport via private vehicle with his . Patient/Family Education Needs: Discharge plan, limitations, follow up plan, Ask Me Three
== END 2020-06-05 13:08 | disposition home or self-care (01) | DRG 481 ==
LOC: ER 06-03 00:20 → MS 06-03 07:57
PROVIDERS: Internal Medicine; Student in an Organized Health Care Education/Training Program; Admitting Provider Internal Medicine; Emergency Provider Student in an Organized Health Care Education/Training Program; PCP Family Medicine; Visit Provider Internal Medicine
PROC: 0QS706Z Reposition Left Upper Femur with Intramedullary Internal Fixation Device, Open Approach (ICD-10-PCS; CPT 27245; principal; 2020-06-03 15:30)
DX: S72.142A Displaced intertrochanteric fracture of left femur, initial encounter for closed fracture (principal); E87.1 Hypo-osmolality and hyponatremia; D62 Acute posthemorrhagic anemia; W01.0XXA Fall on same level from slipping, tripping and stumbling without subsequent striking against object, initial encounter; F10.129 Alcohol abuse with intoxication, unspecified; Y90.8 Blood alcohol level of 240 mg/100 ml or more; F17.210 Nicotine dependence, cigarettes, uncomplicated
CPT/HCPCS: 27245; 36415; 73552; 80048; 80053; 93005; 94640; 96374; 97110; 97162; 97530; 99223; 99238; 99285; J1650; 70450; 72125; 72170; 72192; 73501; 80320; 83735; 85025; 93010; 94667; 99232; J0131; J0690; J1100; J1885; J2405; J2704; J3010; J7042

== ENCOUNTER 2020-06-24 11:27 | Outpatient (CLI) | payer MEDICAID, SELFPAY ==
--- NOTE | 2020-06-20 11:45 | DI.RAD_ITS ---
EXAM: XR FEMUR LT CLINICAL HISTORY: F/U FRACTURE. TECHNIQUE: 2D digital imaging was performed. COMPARISON: CR,XR XR FEMUR LT from 06/02/2020 XR HIP LT IN OR from 06/03/2020 FINDINGS: BONES: There are stable post operative changes present. No new fracture or dislocation. There is an old healed distal left femoral fracture deformity again noted. 2 fractured orthopedic screws are see n in the distal femur from the prior surgery. The intramedullary sclerotic focus is stable and may r epresent a bone infarct or enchondroma. JOINTS: The joint spaces are well maintained. No joint effusion is present. Degenerative changes are seen in the knee. SOFT TISSUE: Normal. IMPRESSION: Stable postoperative changes. DATA REPOSITORY: RADIATION DOSE DELIVERED:
== END 2020-06-24 11:47 ==
PROVIDERS: PCP Family Medicine; Referring Provider Family Medicine; Visit Provider Student in an Organized Health Care Education/Training Program
DX: S72.002A Fracture of unspecified part of neck of left femur, initial encounter for closed fracture (principal)
CPT/HCPCS: 73552

== ENCOUNTER 2020-07-22 10:38 | Outpatient (CLI) | payer MEDICAID, SELFPAY ==
--- NOTE | 2020-07-22 10:30 | DI.RAD_ITS ---
EXAM: XR FEMUR LT CLINICAL HISTORY: f/u fracture. TECHNIQUE: 2D digital imaging was performed. COMPARISON: CR XR FEMUR LT from 06/20/2020 FINDINGS: There is stable appearance of the hardware in the left hip appears unchanged from yesterday. Again is an old healed distal left femoral fracture deformity and 2 fracture orthopedic screws are al so again evident distal femur related to prior surgery. The previously described intramedullary scle rotic focus remains stable and probably represent represents bone infarct or enchondroma. There is a lso benign-appearing calcification above the patella in what is probably the quadriceps tendon. IMPRESSION: DATA REPOSITORY: RADIATION DOSE DELIVERED:
== END 2020-07-22 10:39 | disposition home or self-care (01) ==
LOC: DIORS 10:38
PROVIDERS: PCP Family Medicine; Referring Provider Family Medicine; Visit Provider Student in an Organized Health Care Education/Training Program
DX: S72.142D Displaced intertrochanteric fracture of left femur, subsequent encounter for closed fracture with routine healing (principal)
CPT/HCPCS: 73552

== ENCOUNTER 2020-09-02 12:10 | Outpatient (CLI) | payer MEDICAID, SELFPAY ==
--- NOTE | 2020-09-02 11:15 | DI.RAD_ITS ---
EXAM: XR LUMBAR SPINE AP, LAT CLINICAL HISTORY: numbness in right leg. TECHNIQUE: 2D digital imaging was performed. COMPARISON: No previous for comparison. FINDINGS: There is a right convex scoliotic curvature of the thoracolumbar spine. There are 5 lumbar type vert ebral bodies. No spondylolisthesis is present. Endplate osteophytes are seen throughout the lumbar spine. Disc space narrowing is seen at L3-L4 and L5-S1. Degenerative changes of the facets are seen at L4-5 and L5-S1. No acute fracture or subluxation is seen. Extensive calcification of the abdomi nal aorta is noted. IMPRESSION: Degenerative changes in the lumbar spine as described. DATA REPOSITORY: RADIATION DOSE DELIVERED:
--- NOTE | 2020-09-02 11:15 | DI.RAD_ITS ---
EXAM: XR FEMUR LT CLINICAL HISTORY: f/u fracture. TECHNIQUE: 2D digital imaging was performed. COMPARISON: CR XR FEMUR LT from 07/22/2020 FINDINGS: There has been no change in alignment of the left femoral neck fracture or the intramedullary ale tra nsfixing the fracture. There is an old healed distal left femoral fracture. Orthopedic screws are a gain seen in the distal femur and appear stable. There is a bone infarct or enchondroma in the dista l metaphysis of the left femur which appears stable. Stable last soft tissue calcifications and meta llic foreign bodies are seen. No new fracture or dislocation is present. IMPRESSION: Stable left femur. DATA REPOSITORY: RADIATION DOSE DELIVERED:
--- NOTE | 2020-09-02 11:15 | DI.RAD_ITS ---
EXAM: XR KNEE LT 3V AP,LAT,BALTAZAR CLINICAL HISTORY: left knee pain. TECHNIQUE: 2D digital imaging was performed. COMPARISON: CR XR FEMUR LT from 07/22/2020 FINDINGS: Findings of an old healed distal left femoral fracture are seen. Fractured orthopedic screws are see n in the distal femur. There is an intramedullary lesion in the distal metaphysis of the femur likel y reflecting a bone infarct or enchondroma. No acute fracture or dislocation is present. The bones appear osteopenic. Mild degenerative changes are seen in the knee. There is chondrocalcinosis. IMPRESSION: Degenerative changes in the left knee. DATA REPOSITORY: RADIATION DOSE DELIVERED:
== END 2020-09-02 12:11 | disposition home or self-care (01) ==
LOC: DIORS 12:10
PROVIDERS: PCP Family Medicine; Referring Provider Family Medicine; Visit Provider Student in an Organized Health Care Education/Training Program
DX: R20.0 Anesthesia of skin (principal); M51.37 Other intervertebral disc degeneration, lumbosacral region; M25.562 Pain in left knee; M17.12 Unilateral primary osteoarthritis, left knee; Z87.81 Personal history of (healed) traumatic fracture
CPT/HCPCS: 73552; 73562; 72100

== ENCOUNTER 2020-09-13 03:27 | Outpatient (CLI) | payer MEDICAID, SELFPAY ==
--- NOTE | 2020-09-13 06:15 | DI.MRI_ITS ---
EXAM: MR LUMBAR SPINE WO CLINICAL HISTORY: RT LUMBAR RADICULOPATHY,M54.16,BACK PAIN. TECHNIQUE: Multiplanar multisequence MRI of the Lumbar spine was performed. COMPARISON: CR XR LUMBAR SPINE AP, LAT from 09/02/2020 FINDINGS: Bones: The last intervertebral disc space is designated the L5/S1 level for the numbering purpose of this examination. The vertebral body heights are well maintained. There is a moderate right convex scoliosis of the thoracolumbar spine. Mild degenerative endplate signal changes are present. No balwinder dence of an acute fracture. Cord: The conus tip ends at the L1 level. It is of normal size and signal intensity. T12-L1: No disc herniations or bulges are present. No central spinal canal or neural foraminal stenos is. L1-2: No disc herniations or bulges are present. No central spinal canal or neural foraminal stenosis . L2-3: There is disc desiccation. There is a diffuse disc bulge eccentric to the left. No significan t central spinal canal stenosis is seen. No right neural foraminal stenosis is seen moderately sever e left neural foraminal stenosis is present. L3-4: There is disc desiccation. Degenerative changes of the facets are seen. No significant centra l spinal canal stenosis is present. Moderate right neural foraminal stenosis is seen. There is sandra ed left neural foraminal stenosis with compression of the exiting nerve root. L4-5: There is disc desiccation. There is diffuse disc bulge. There are degenerative changes of the facets. There is mild narrowing of the central spinal canal. There is marked narrowing of the righ t neural foramen with compression of the exiting nerve root. There is [id number] narrowing of the left neural foramen. L5-S1: There is disc desiccation. There is a diffuse disc bulge. There are degenerative changes of the facets. No significant central spinal canal stenosis is present. There is marked right neural f oraminal stenosis and mild left neural foraminal stenosis. There is compression of the right exiting nerve root. Soft tissues: The visualized SI joints and sacrum are well maintained. The paraspinal soft tissues ar e unremarkable. IMPRESSION: 1. Moderately severe multilevel degenerative changes in the lumbar spine. 2. Multilevel central spinal canal and neural foraminal stenosis as described above. DATA REPOSITORY:
== END 2020-09-13 03:47 ==
PROVIDERS: PCP Family Medicine; Visit Provider Student in an Organized Health Care Education/Training Program
DX: M54.16 Radiculopathy, lumbar region (principal); M51.17 Intervertebral disc disorders with radiculopathy, lumbosacral region; M48.07 Spinal stenosis, lumbosacral region
CPT/HCPCS: 72148

== ENCOUNTER 2020-10-11 09:00 | Outpatient (CLI) | payer MEDICAID, SELFPAY ==
[2020-10-11 12:50] LABS: HCT 41.8 % (40.0-50.0); HGB 13.9 g/dL (13.5-17.5); MCH 30.3 pg (27.0-33.0); MCHC 33.3 % (32.0-36.0); MCV 91.3 fL (80-95); MPV 9.4 fL (8.0-11.0); Platelet Count 318 10^3/uL (130-400); RBC 4.58 10^6/uL (4.36-5.78); RDW 13.5 % (11.8-14.1); RDW-SD 45.4 fL; WBC 6.25 10^3/uL (4.4-10.8)
[2020-10-11 13:34] LABS: ALT 30 U/L (16-63); AST 30 U/L (15-37); Albumin 4.1 g/dL (3.4-5.0); Alkaline Phosphatase 81 U/L (46-116); Anion Gap 11.5 mmol/L (3-11); BUN 9 mg/dL (7-18); Bilirubin, Direct 0.2 mg/dL (0.0-0.2); Bilirubin, Total 0.6 mg/dL (0.2-1.0); CO2 24.5 mmol/L (21.0-32.0); CREATININE 0.8 mg/dL (0.70-1.30); Calcium 9.3 mg/dL (8.5-10.1); Chloride 105 mmol/L (98-107); Glucose 90 mg/dL (74-106); Potassium 4.7 mmol/L (3.5-5.1); Sodium 141 mmol/L (136-145); Total Protein 7.8 g/dL (6.4-8.2)
[2020-10-11 14:02] LABS: GGT 41 U/L (15-85)
== END 2020-10-11 09:01 | disposition home or self-care (01) ==
PROVIDERS: PCP Family Medicine; Referring Provider Family Medicine; Visit Provider Family Medicine
DX: F10.10 Alcohol abuse, uncomplicated (principal); E87.1 Hypo-osmolality and hyponatremia; G72.89 Other specified myopathies; D64.9 Anemia, unspecified
CPT/HCPCS: 36415; 80048; 80076; 85027; 82977

== ENCOUNTER 2021-07-21 22:07 | Emergency (ER) | payer MEDICAID, SELFPAY ==
--- NOTE | 2021-07-21 22:30 | DI.RAD_ITS ---
Exam(s) XR SHOULDER LT COMPLETE 2+V EXAM: XR SHOULDER LT COMPLETE 2+V CLINICAL HISTORY: concerned for possible dislocation after FOOSH TECHNIQUE: COMPARISON: No exams were available for comparison FINDINGS: Three views were obtained. There is an anterior dislocation of the humeral head from the glenoid fos sa with associated Hill-Sachs deformity of the humeral head. No other evidence of fracture. IMPRESSION: RADIATION DOSE DELIVERED: Total DLP
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
[2021-07-21 22:46] VITALS: BP 155/110; PULSE 76; RESP 12; O2SAT 97
[2021-07-21] MEDS: Lidocaine 1% Multi-Dose 50 ML VIAL (23:15)
[2021-07-21 23:38] VITALS: BP 134/77; PULSE 83
[2021-07-21 23:42] VITALS: PULSE 86; RESP 11
[2021-07-21 23:46] VITALS: BP 128/77; PULSE 83; PULSE 85; RESP 13
[2021-07-21 23:50] VITALS: PULSE 88; RESP 17
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
[2021-07-22] VITALS: PULSE 86; RESP 19
[2021-07-22 00:01] VITALS: BP 120/75; PULSE 84; RESP 23
[2021-07-22 00:10] VITALS: PULSE 83; RESP 20
[2021-07-22 00:16] VITALS: BP 115/71; PULSE 84; PULSE 86; RESP 17
[2021-07-22 00:20] VITALS: PULSE 104; RESP 27
--- NOTE | 2021-07-22 00:38 | SUR.PHASEI ---
pt with closed reduction of left shoulder pt given propofol 60 mg @ 0031 pt given propofol 20 mg @ 0033 pt shoulder reduced @ 0036 and pt placed in sling
--- NOTE | 2021-07-22 01:34 | RESPIRATORY ---
RT called into ED for left shoulder reduction with conscious sedation. Pt placed on 2L NC w/etCO2 monitoring. Emergency equipment at head of bed. Pts vitals remained stable throughout procedure with SpO2 remaining > 96%. Pt recovered on room air and was discharged from ED
== END 2021-07-22 01:29 | disposition home or self-care (01) ==
PROVIDERS: Emergency Provider Physician Assistant; PCP Family Medicine
DX: S43.085A Other dislocation of left shoulder joint, initial encounter (principal); W00.0XXA Fall on same level due to ice and snow, initial encounter
CPT/HCPCS: 23650; 73030

== ENCOUNTER 2021-07-25 17:39 | Emergency (ER) | payer MEDICAID, SELFPAY ==
[2021-07-25] VITALS (50 sets, daily range): BP systolic 58–185; BP diastolic 46–109; PULSE 16–137; RESP 10–31; TEMP 36.6; O2SAT 93–98
[2021-07-25] MEDS: fentaNYL 100 MCG/2 ML VIAL 25 MCG IVP ×2 (19:04→20:01)
--- NOTE | 2021-07-25 20:45 | DI.RAD_ITS ---
Exam(s) XR SHOULDER LT COMP POST REDUC EXAM: XR SHOULDER LT COMP POST REDUC CLINICAL HISTORY: POST-REDUCTION. TECHNIQUE: 2D digital imaging was performed of the left shoulder. Two images were obtained. AP and Y views were obtained. COMPARISON: CR,XR XR SHOULDER LT COMPLETE 2+V from 07/21/2021 FINDINGS: Examination is limited due to patient positioning. BONES: No acute fracture is present. There does appear to be a Hill-Sachs deformity of the lateral a spect of the humeral head. No bony destructive lesion is seen. The bones are osteopenic. JOINTS: No dislocation present. Degenerative changes are seen at the AC joint. There are degenerativ e changes seen throughout the thoracic spine. SOFT TISSUE: Normal. IMPRESSION: No evidence of a dislocation. DATA REPOSITORY: RADIATION DOSE DELIVERED:
[2021-07-25] MEDS: Propofol 200 MG/20 ML VIAL (20:50)
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
--- NOTE | 2021-07-25 21:29 | DI.VRAD_ITS ---
Addendum created by Maryellen Chisholm MD on 07/25/2021 9:35:45 PM EST: THIS REPORT CONTAINS FINDINGS THAT MAY BE CRITICAL TO PATIENT CARE. The findings were verbally communicated via telephone conference with PROJECT FINANCE ANALYST Naga Bowen 9:35 PM EST on 07/25/2021. The findings were acknowledged and understood. Initial report created on 07/25/2021 9:29:21 PM EST: PROCEDURE INFORMATION: Exam: XR Left Shoulder Exam date and time: 07/25/2021 8:48 PM Age: 61 years old Clinical indication: Other: Post reduction TECHNIQUE: Imaging protocol: XR Left shoulder. Views: 2 or more views. COMPARISON: CR XR SHOULDER LT COMPLETE 2+V 07/21/2021 10:34 PM FINDINGS: Bones/joints: Per the on-site survey technologist, no pre-reduction images from today are available for comparison. There is no evidence of dislocation. There is some irregularity to the lateral aspect of the humeral head which could indicate an age indeterminate Hill-Sachs deformity. If indicated, this can be further evaluated with CT. Skeletal degenerative changes are seen. There is a fragmented appearance to the distal clavicle, similar to prior exam. Soft tissues: There is left hilar prominence. This may be positional. A dedicated chest radiograph is suggested for further evaluation. IMPRESSION: 1. Per the on-site survey technologist, no pre-reduction images from today are available for comparison. 2. There is no evidence of dislocation. There is some irregularity to the lateral aspect of the humeral head which could indicate an age indeterminate Hill-Sachs deformity. If indicated, this can be further evaluated with CT. 3. Left hilar prominence. This may be positional. Dedicated chest radiograph is suggested for further evaluation. Other findings/details as above. Dictated and Authenticated by: Maryellen Chisholm MD. Ordering:LIDA Loredo MD
== END 2021-07-25 22:13 | disposition home or self-care (01) ==
PROVIDERS: Emergency Provider Nurse Practitioner Family; PCP Family Medicine
DX: M24.412 Recurrent dislocation, left shoulder (principal)
CPT/HCPCS: 23650; 73030; J2704; J3010

== ENCOUNTER 2021-09-02 13:17 | Outpatient (CLI) | payer MEDICAID, SELFPAY ==
--- NOTE | 2021-09-02 13:15 | DI.RAD_ITS ---
Exam(s) XR SHOULDER LT COMPLETE 2+V EXAM: XR SHOULDER LT COMPLETE 2+V CLINICAL HISTORY: left shoulder f/u. TECHNIQUE: 2D digital imaging was performed of the left shoulder. Two images were obtained. AP and axillary views were obtained. COMPARISON: CR,XR XR SHOULDER LT COMPLETE 2+V from 07/21/2021 FINDINGS: BONES: No acute fracture is present. No bony destructive lesion is seen. The bones are osteopenic. JOINTS: No dislocation present. Hypertrophic changes are seen at the acromioclavicular joint. Mild d egenerative changes are seen at the glenohumeral joint. SOFT TISSUE: Normal. IMPRESSION: No acute fracture or dislocation. DATA REPOSITORY: RADIATION DOSE DELIVERED:
== END 2021-09-02 13:18 | disposition home or self-care (01) ==
LOC: DIORS 13:17
PROVIDERS: PCP Family Medicine; Referring Provider Family Medicine; Visit Provider Student in an Organized Health Care Education/Training Program
DX: S43.015A Anterior dislocation of left humerus, initial encounter (principal); M25.812 Other specified joint disorders, left shoulder; M85.88 Other specified disorders of bone density and structure, other site
CPT/HCPCS: 73030

== ENCOUNTER 2022-05-18 15:06 | Outpatient (CLI) | payer MEDICAID, SELFPAY ==
--- NOTE | 2022-05-18 08:15 | DI.RAD_ITS ---
Exam(s) XR PAIN CLINIC LUMBAR SP 2V EXAM: XR PAIN CLINIC LUMBAR SP 2V CLINICAL HISTORY: Dx: Lumbar Radiculopathy. TECHNIQUE: Fluoroscopy was provided for the referring physician for guidance with performing pain cl inic injection procedure. COMPARISON: No exams were available for comparison FINDINGS: Please see procedure note for details. Fluoro time: 9.2 seconds RADIATION DOSE DELIVERED: Ka,r=1.47 mGy
[2022-05-18 15:15] VITALS: BP 135/89; PULSE 101; RESP 20; TEMP 36.7; O2SAT 97
[2022-05-18] MEDS: Dexamethasone Sod. Phos./Pres-Free 10 MG/ML VIAL IJ (15:55)
[2022-05-18 15:57] VITALS: BP 148/89; PULSE 95; RESP 14; O2SAT 100
--- NOTE | 2022-05-18 15:58 | PDOC.PAIN ---
Date of service: 05/18/22 Time of Service: 15:58 Pain Clinic Procedure Note Procedure Note Procedure Note: Lumbar Epidural Steroid Injection Procedure Note Pre-operative diagnosis: lumbar radiculopathy Post-operative diagnosis: same as above COMMENTS: patient presents for repeat LESI. He has chronic right L5 radiculopathy. He also has iodinated allergy. Robert Solis has been referred to the [facility] for lumbar epidural steroid injection. The patient was greeted by the nurse who verified patients name and . Patient was then taken to the fluoroscopy suite. The patient was interviewed and the medial record reviewed. There were no medical, pharmacologic, radiographic, or other structural contraindications to attempting fluoroscopically guided lumbar epidural steroid injection. Risks and expected side effects as well as potential benefits of the procedure were reviewed and voiced concerns expressed. The patient consent form was signed and witnessed. Standard patient time-out procedure was performed. The patient was placed in the prone position on the fluoroscopy table and automated blood pressure cuff and pulse oximeter applied. The skin entry point for entering/approaching the epidural space by a L5-S1 and marked. Following thorough chlorhexadine preparation of the skin and draping and 1% lidocaine infiltration of the skin entry point and subcutaneous tissues, a 18 gauge Touhy needle was placed under fluoroscopic guidance and with loss of resistance technique into the epidural space. Needle tip placement and depth were aided and confirmed by fluoroscopy. There was no paresthesia or return of blood or CSF through the needle. Omnipaque 240 was omitted due to contrast allergy. 15mg preservative free dexamethasone mixed with 0.5cc of normal saline was injected. There was not any unusual discomfort expressed by Robert Solis. Patient's vital signs were stable throughout the procedure and were as recorded in nursing records. Follow up plans and appointments were discussed with patient. Post procedure instruction was given as documented in nursing records and having met discharge criteria and was discharged from the [facility]. COMMENTS: If patient fails to improve with repeat LESI, consider right L5 TFESI. Pre-procedure VAS score 7/10, post-procedure VAS score 0/10. Lucie Ace MD Pain Management
== END 2022-05-18 15:07 | disposition home or self-care (01) ==
LOC: PC 15:06
PROVIDERS: PCP Family Medicine; Visit Provider Internal Medicine
DX: M54.16 Radiculopathy, lumbar region (principal)
CPT/HCPCS: 62323; 72100

== ENCOUNTER 2022-07-28 12:57 | Outpatient (CLI) | payer MEDICAID, SELFPAY ==
[2022-07-28 13:08] VITALS: BP 126/81; PULSE 61; RESP 20; TEMP 36.5; O2SAT 92
--- NOTE | 2022-07-28 13:30 | DI.RAD_ITS ---
Exam(s) XR PAIN CLINIC LUMBAR SP 2V EXAM: XR PAIN CLINIC LUMBAR SP 2V CLINICAL HISTORY: Dx: Lumbar Radiculopathy TECHNIQUE: 2D and realtime digital imaging was performed. Radiologist not present. CONTRAST MATERIAL: None. COMPARISON: No exams were available for comparison FINDINGS: Fluoroscopy was provided for pain management therapy. Please refer to procedure report or details. Radiation Exposure Index: Ka,r=9.38 mGy IMPRESSION: As above. RADIATION DOSE DELIVERED:
[2022-07-28 14:05] VITALS: BP 136/71; PULSE 89; RESP 15; O2SAT 100
[2022-07-28] MEDS: Dexamethasone Sod. Phos./Pres-Free 10 MG/ML VIAL IJ (14:10)
--- NOTE | 2022-08-06 08:00 | PDOC.PAIN ---
Date of service: 07/28/22 Time of Service: 12:30 Pain Clinic Procedure Note Procedure Note Procedure Note: Lumbar Epidural Steroid Injection Procedure Note COMMENTS:He did well with his last LESI. Pre-procedure pain VAS scale score was 8/10. Dx: Lumbar radiculopathy Robert Solis has been referred to the [facility] Center for lumbar epidural steroid injection. The patient was greeted by the nurse who verified patients name and . Patient was then taken to the fluoroscopy suite. The patient was interviewed and the medial record reviewed. There were no medical, pharmacologic, radiographic, or other structural contraindications to attempting fluoroscopically guided lumbar epidural steroid injection. Risks and expected side effects as well as potential benefits of the procedure were reviewed and voiced concerns expressed. The patient consent form was signed and witnessed. Standard patient time-out procedure was performed. The patient was placed in the prone position on the fluoroscopy table and automated blood pressure cuff and pulse oximeter applied. The skin entry point for entering/approaching the epidural space at L5-S1 and marked. Following thorough chlorhexadine preparation of the skin and draping and 1% lidocaine infiltration of the skin entry point and subcutaneous tissues, a 18 gauge Touhy needle was placed under fluoroscopic guidance and with loss of resistance technique into the epidural space. Needle tip placement and depth were aided and confirmed by fluoroscopy. There was no paresthesia or return of blood or CSF through the needle. 1 cc's of Omnipaque 240 was injected with clear epidural spread confirmed with fluoroscopy. 80mg depomedrol was injected. There was not any unusual discomfort expressed by Robert Solis. Patient's vital signs were stable throughout the procedure and were as recorded in nursing records. Follow up plans and appointments were discussed with patient. Post procedure instruction was given as documented in nursing records and having met discharge criteria and was discharged from the Pain Management Center. COMMENTS: If this procedure is helpful, it can be completed up to 3 times per 12 months. Post-procedure pain VAS was 3/10. Felipe Mata DO, MPH [facility]-Pain Management [facility] for [facility] Management
== END 2022-07-28 12:58 | disposition home or self-care (01) ==
LOC: PC 12:57
PROVIDERS: PCP Family Medicine; Visit Provider Preventive Medicine Occupational Medicine
DX: M54.16 Radiculopathy, lumbar region (principal)
CPT/HCPCS: 62323; 72100

== ENCOUNTER 2022-08-26 11:17 | Day surgery (SDC) | payer MEDICAID, SELFPAY ==
[2022-08-26 11:45] VITALS: BP 139/116; PULSE 84; RESP 20; TEMP 36.9; O2SAT 96
[2022-08-26] MEDS: Lactated Ringers 1,000 ML 80 ML IV (12:00)
[2022-08-26 12:13] VITALS: BP 164/96; PULSE 80; RESP 18; TEMP 36.3; O2SAT 96
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
[2022-08-26 12:52] VITALS: BMI 22.8
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
[2022-08-26 13:25] VITALS: BP 122/78; PULSE 81; RESP 18; TEMP 36.3; O2SAT 96
--- NOTE | 2022-08-26 13:26 | W.PM.DSUDISC ---
Date of service: 08/26/22 Time of Service: 13:26 Discharge Plan Disposition Patient Disposition: Home Condition: Good Discharge Details Reason For Visit: R ECTR Attending Provider: Jackson Dickson Primary Care Provider: Yung Burton Home Meds and New Rx's Prescriptions: New acetaminophen 500 mg tablet 1,000 mg PO TID Qty: 90 0RF hydrocodone-acetaminophen 5-325 mg tablet 1 tab PO Q6H PRN (Reason: pain) Qty: 4 0RF ibuprofen 600 mg tablet 600 mg PO TID PRN (Reason: pain) Qty: 90 0RF Continued albuterol sulfate [Ventolin HFA] 90 mcg/actuation HFA aerosol inhaler 2 puff IH QID PRN (Reason: shortness of breath or wheezing) Qty: 8.5 3RF amlodipine 5 mg tablet 5 mg PO DAILY Qty: 30 5RF tadalafil 5 mg tablet 5 - 20 mg PO DAILY PRN (Reason: sexual activity) Qty: 30 2RF multivitamin 1 EACH tablet 1 ea PO DAILY GLUCOSAMINE \T\ CHONDROITIN CAP 1 EACH capsule 1 ea PO DAILY gabapentin 800 mg tablet 800 mg PO TID Qty: 90 5RF budesonide-formoterol [Symbicort] 80-4.5 mcg/actuation HFA aerosol inhaler 2 puff IH BID Qty: 10.2 11RF Hold Instructions: Home Medication placed on hold at Doctor's office Rx Instructions: rinse and spit with water after each dose ascorbic acid (vitamin C) [Vitamin C] 500 mg Tablet 250 mg PO BID Qty: 60 0RF Discontinued ibuprofen 800 mg tablet 800 mg PO Q8H PRN (Reason: pain) Qty: 90 5RF acetaminophen [Mapap Extra Strength] 500 mg Tablet 1,000 mg PO Q8H Qty: 0 0RF Discharge Instructions Stand Alone Forms: Ellaa Kymberly Tunnel Release Referrals: Jackson Dickson MD [ [facility] STAFF PHYSICIAN] - Activity:: Activity as Tolerated Remove Dressings/Wound Care:: 48 hours Shower/Bathe:: 48 hours Diet:: As Tolerated Discharge Orders Discharge Orders: Discharge Order (Routine); Ordered 08/26/22 Ordered By: Ervin Muñiz DS: Diagnosis Discharge Diagnosis (1) Right carpal tunnel syndrome: Status: Acute
--- NOTE | 2022-08-26 13:34 | W.ANESPOSTOP ---
Postoperative Evaluation Date, Time and Location Date Performed: 08/26/22 Time Performed: 13:34 Patient Location: Day Surgery Unit Vital Signs Most Recent Imported Vital Signs: Most Recent Vital Signs Temp Pulse Resp BP Pulse Ox 36.3 C L 81 18 122/78 96 08/26/22 13:25 08/26/22 13:25 08/26/22 13:25 08/26/22 13:25 08/26/22 13:25 Pain Score Most Recent Pain Score: Most Recent Pain Score Pain Level 0 08/26/22 13:25 Assessment Mental Status: Awake (Alert & Oriented to Patient Baseline) Airway and Respiratory Function: Patent airway with normal (patient baseline) respiratory exam Cardiovascular Function: Hemodynamically Stable Hydration Status: Adequately Hydrated Nausea & Vomiting: No Nausea or Vomiting Pain: Pt. Denies Any Pain Peripheral Nerve Block: Patient did not receive a nerve block
[2022-08-26 13:54] VITALS: BP 128/89; PULSE 85; RESP 18; TEMP 36.3; O2SAT 94
--- NOTE | 2022-08-26 14:14 | ROE_ITS ---
Date of service: 08/26/22 Time of Service: 13:30 Operative Note Operative Note DATE OF PROCEDURE: 08/26/22 PRE-OP DIAGNOSIS: Right Carpal Tunnel Syndrome POST-OP DIAGNOSIS: same PROCEDURE: Right Endoscopic Carpal Tunnel Release SURGEON: Jackson Dickson ANESTHESIA TYPE: General:No Airway Refer to Anesthesia Record ESTIMATED BLOOD LOSS: 0 PATHOLOGY: none sent TOURNIQUET TIME: 4 COMPLICATIONS: None Patient was transported to: same day Patient's condition: stable Indications: I have seen Robert in clinic for symptoms of carpal tunnel syndrome. The numbness, tingling, and pain limited function. Clinical exam findings with nerve conduction tests confirmed the diagnosis of carpal tunnel syndrome. Nonoperative measures such as bracing, time, activity modifications had been tried but disability and pain persisted. I discussed carpal tunnel release with the patient. I reviewed the risks of the procedure to include, but not limited to, bleeding, infection, pain, stiffness, incomplete release, damage to nerves or vessels, persistent numbness, recurrence. Despite these risks, the patient elected to proceed. Findings: There was tightened carpal tunnel. This was dilated and released successfully with the endoscopic with increased space within the tunnel. The antebrachial fascia was released proximally freeing the median nerve at the wrist. Procedure Description: Robert was greeted in the preoperative holding area where the correct side was identified and marked. The consent was reviewed with the patient and signed. The history and physical was updated. All questions were answered. He was taken back to the operating room. The patient was placed into the supine position on the operating room table with the right arm on an arm board. A nonsterile tourniquet was placed high onto the arm. All bony prominences were well padded. Prophylactic antibiotics in the form of Cefazolin were administered. The right arm was then prepped with Chloraprep and draped in a standard fashion with stockinette and extremity drape. A timeout to confirm correct identity, side and site, procedure, allergies, anesthesia, and medical concerns was performed. The surgical site was marked in the volar wrist creases in line with the radial border of the fourth ray. This area was anesthetized with approximately 6cc of 1% Lidocaine. The limb was then exsanguinated with an Esmarch. The skin was incised with a 15 blade, approximately 1cm. The skin only was cut and the deeper tissue was dissected bluntly with a tenotomy scissor, avoiding passing nerve and venous structures. The fascia was penetrated and opened bluntly. A two-prong skin hook was placed under this proximal fascial edge. A series of hamate finders were used to identify and dilate the carpal tunnel. Synovial elevator was used to free synovial attachments to the underside of the transverse carpal ligament. My thumb was kept in the palm to sandra the distal extent of the carpal tunnel and correctly position the hand. The Microaire en doscope was inserted without difficulty and without resistance. Excellent visualization showed horizontally running fibers of the transverse carpal ligament (TCL). The distal extent of the TCL was visualized and the end of the scope palpated with the thumb. The blade was elevated and withdrawn from distal to proximal. The TCL was split into two flaps. The endoscope was reinserted to confirm complete release and any remnant ligament was incised. The scope was withdrawn and the proximal aspect of the carpal tunnel was grossly inspected and appeared release with the median nerve visible. The antebrachial fascia at the level of the wrist was then freed from the overlying skin and then the underlying median nerve with blunt dissection. This was transected longitudinally for about 3cm proximal to the wrist incision. The wound was then irrigated with easy flow of irrigant distally and proximally. The incision was closed with a single 4-0 Nylon suture. The wound was dressed with Xeroform, Gauze, Kerlix and Kurtis. The tourniquet was deflated with the initial dressing and held with some pressure. Blood flow returned easily to all digits with capillary refill less than 2 seconds. The patient tolerated the procedure well and was returned to the Same Day Surgery area in a stable condition suffering no known complication.
== END 2022-08-26 14:20 | disposition home or self-care (01) ==
PROVIDERS: PCP Family Medicine; Visit Provider Student in an Organized Health Care Education/Training Program
PROC: 01N54ZZ Release Median Nerve, Percutaneous Endoscopic Approach (ICD-10-PCS; CPT 29848; principal; 2022-08-26 15:00)
DX: G56.01 Carpal tunnel syndrome, right upper limb (principal)
CPT/HCPCS: 29848; J1100; J1885; J2405; J2704; J3010

== ENCOUNTER 2022-10-15 08:34 | Outpatient (CLI) | payer MEDICAID, SELFPAY ==
[2022-10-15 12:46] LABS: Calculated LDL 82 mg/dL (<100); Cholesterol 208 mg/dL (<200); HDL Cholesterol 119 mg/dL (40-60); Triglyceride 36 mg/dL (<150)
== END 2022-10-15 08:35 | disposition home or self-care (01) ==
LOC: LOS 08:34
PROVIDERS: PCP Family Medicine; Referring Provider Family Medicine; Visit Provider Family Medicine
DX: E78.5 Hyperlipidemia, unspecified (principal)
CPT/HCPCS: 36415; 80061

== ENCOUNTER 2023-01-07 13:45 | Outpatient (CLI) | payer MEDICAID, SELFPAY ==
[2023-01-07 13:53] VITALS: BP 131/82; PULSE 94; RESP 20; TEMP 36.7; O2SAT 98
--- NOTE | 2023-01-07 14:12 | PDOC.PAIN ---
Date of service: 01/07/23 Time of Service: 14:44 Pain Managment Procedure Note Procedure Note Procedure Note: PROCEDURE NOTE LUMBAR EPIDURAL STEROID INJECTION Date of Service: January 07, 2023 Patient:Robert Caldwell? Provider: Felipe Mata DO, MPH Robert Solis has been referred to the [facility] for a lumbar epidural steroid injection. Pre-operative diagnosis: Lumbosacral Radiculopathy Post-operative diagnosis: Same Pre-Procedure Pain: VAS= 8 /10 Comments: His last LESI was on 07/28/22 and he had 50% pain relief for 3+ months. He is allergic to Iodine contrast, so no contrast is being used today. Robert was interviewed and the medical record was reviewed.? There were no medical, pharmacologic, radiographic or other structural contraindications to attempting fluoroscopically guided Lumbar epidural steroid injection.? Risks, potential side effects, indications, and potential benefits of the procedure were reviewed with Robert.? Questions and concerns were addressed.? After it was clear that Robert was fully informed about the procedure, the printed consent form was signed by the patient and myself.? Robert was placed in the prone position on the fluoroscopy table and automated blood pressure cuff and pulse oximeter applied. The skin entry point for entering/approaching the epidural space for the lumbar epidural steroid injection was marked. Following thorough chlorhexadine preparation of the skin and draping and 1% lidocaine infiltration of the skin entry point and subcutaneous tissues, an 18 gauge Touhy needle was placed and advanced under fluoroscopic guidance and with loss of resistance technique into the L5-S1 epidural space. Needle tip placement and depth were aided and confirmed by fluoroscopy. There was no paresthesia or return of blood or CSF through the needle. 1 mls of Omnipaque 240 was injected with clear epidural spread confirmed with fluoroscopy. 15 mg of Dexamethasone (10 mg/cc) was? injected. This was followed by 1 ml of preservative-free normal saline to flush the steroid out of the needle. There was no unusual discomfort expressed by Robert. The needle was withdrawn without difficulty. (49 mls of Omnipaque was wasted) Robert was observed and was without hemodynamic, neurologic, or allergic reactions.? Fluoroscopic images were digitally archived. Robert's vital signs were stable throughout the procedure and were as recorded in nursing records. Follow up plans and appointments were discussed with Robert. Post procedure instruction was given as documented in nursing records and having met discharge criteria Robert was discharged from the [facility]. COMMENTS: No apparent complications. Post-procedure pain: VAS= 2/10. Robert to contact [facility] as needed. If at least 50% improvement in pain and/or function for at least 3 months is achieved, this procedure can be repeated. I personally performed this entire procedure. FELIPE MATA DO, MPH ABPMR-subspecialty board certification in Pain Medicine [facility]
--- NOTE | 2023-01-07 14:30 | DI.RAD_ITS ---
Exam(s) XR PAIN CLINIC LUMBAR SP 2V EXAM: XR PAIN CLINIC LUMBAR SP 2V CLINICAL HISTORY: Dx:Lumbar Radiculopathy TECHNIQUE: 2D and realtime digital imaging was performed. CONTRAST MATERIAL: Refer to procedure report. COMPARISON: No exams were available for comparison FINDINGS: Fluoroscopy was provided for Dr. Mata during the performance of a lumbar epidural steroid injection. Please refer to the procedure report for complete details. Ka,r=2.7 mGy IMPRESSION:
[2023-01-07 14:32] VITALS: BP 139/79; PULSE 84; RESP 12; O2SAT 100
[2023-01-07] MEDS: Dexamethasone Sod. Phos./Pres-Free 10 MG/ML VIAL IJ (14:39)
== END 2023-01-07 13:46 | disposition home or self-care (01) ==
PROVIDERS: PCP Family Medicine; Visit Provider Preventive Medicine Occupational Medicine
DX: M54.17 Radiculopathy, lumbosacral region (principal)
CPT/HCPCS: 62323; 72100

== ENCOUNTER 2023-08-12 10:59 | Outpatient (CLI) | payer MEDICAID, SELFPAY ==
[2023-08-12 11:29] VITALS: BP 136/91; PULSE 61; RESP 20; TEMP 36.7; O2SAT 98
--- NOTE | 2023-08-12 12:10 | PDOC.PAIN ---
Date of service: 08/12/23 Time of Service: 12:10 Pain Managment Procedure Note Procedure Note Procedure Note: PROCEDURE NOTE LUMBAR EPIDURAL STEROID INJECTION Date of Service: August 12, 2023 Patient:Robert Caldwell? Provider: Felipe Mata DO, MPH Robert Solis has been referred to the [facility] for a lumbar epidural steroid injection. Pre-operative diagnosis: Lumbosacral Radiculopathy Post-operative diagnosis: Same Pre-Procedure Pain: VAS= 6 /10 Comments: He had >3 months of >50% relief with his last LESI from 01/07/23. Robert was interviewed and the medical record was reviewed.? There were no medical, pharmacologic, radiographic or other structural contraindications to attempting fluoroscopically guided Lumbar epidural steroid injection.? Risks, potential side effects, indications, and potential benefits of the procedure were reviewed with Robert.? Questions and concerns were addressed.? After it was clear that Robert was fully informed about the procedure, the printed consent form was signed by the patient and myself.? Robert was placed in the prone position on the fluoroscopy table and automated blood pressure cuff and pulse oximeter applied. The skin entry point for entering/approaching the epidural space for the lumbar epidural steroid injection was marked. Following thorough chlorhexadine preparation of the skin and draping and 1% lidocaine infiltration of the skin entry point and subcutaneous tissues, an 18 gauge Touhy needle was placed and advanced under fluoroscopic guidance and with loss of resistance technique into the L5-S1 epidural space. Needle tip placement and depth were aided and confirmed by fluoroscopy. There was no paresthesia or return of blood or CSF through the needle. 1 mls of Omnipaque 240 was injected with clear epidural spread confirmed with fluoroscopy. 80 mg of Depo-Medrol was? injected. This was followed by 1 ml of preservative-free normal saline to flush the steroid out of the needle. There was no unusual discomfort expressed by Robert. The needle was withdrawn without difficulty. (49 mls of Omnipaque was wasted) Robert was observed and was without hemodynamic, neurologic, or allergic reactions.? Fluoroscopic images were digitally archived. Robert's vital signs were stable throughout the procedure and were as recorded in nursing records. Follow up plans and appointments were discussed with Robert. Post procedure instruction was given as documented in nursing records and having met discharge criteria Robert was discharged from the [facility]. COMMENTS: No apparent complications. Post-procedure pain: VAS= 2/10. Robert to contact [facility] as needed. If at least 50% improvement in pain and/or function for at least 3 months is achieved, this procedure can be repeated. I personally performed this entire procedure. FELIPE MATA DO, MPH ABPMR-subspecialty board certification in Pain Medicine [facility]
--- NOTE | 2023-08-12 12:12 | DI.RAD_ITS ---
Exam(s) XR PAIN CLINIC LUMBAR SP 2V EXAM: XR PAIN CLINIC LUMBAR SP 2V CLINICAL HISTORY: Dx: Lumbar Radiculopathy TECHNIQUE: 2D and realtime digital imaging was performed. CONTRAST MATERIAL: Refer to procedure report. COMPARISON: No exams were available for comparison FINDINGS: Fluoroscopy was provided for Dr. Mata during the performance of a lumbar epidural steroid injection. Please refer to the procedure report for complete details. Ka,r=2.76 mGy IMPRESSION: RADIATION DOSE DELIVERED: 0.0 0.0 0
[2023-08-12 12:15] VITALS: PULSE 63; RESP 10; O2SAT 100
[2023-08-12] MEDS: Dexamethasone Sod. Phos./Pres-Free 10 MG/ML VIAL IJ (12:17)
[2023-08-12] MEDS: Epidural Tray 1 EACH MC (12:17)
== END 2023-08-12 11:00 | disposition home or self-care (01) ==
LOC: PC 11:00
PROVIDERS: PCP Family Medicine; Visit Provider Preventive Medicine Occupational Medicine
DX: M54.17 Radiculopathy, lumbosacral region (principal)
CPT/HCPCS: 00123; 62323; 72100; J1100

== ENCOUNTER → 2023-08-20 10:22 | Outpatient (CLI) | payer MEDICAID, SELFPAY ==
--- NOTE | 2023-08-20 09:00 | DI.RAD_ITS ---
Exam(s) XR CHEST 2V PA LATERAL EXAM: XR CHEST 2V PA LATERAL CLINICAL HISTORY: Acute SOB/abnormal lung sounds, SOB ON EXERTION, R06.02. TECHNIQUE: 2D digital imaging was performed. COMPARISON: CR CHEST 2 VIEWS PA,LAT from 11/16/2017 FINDINGS: 2 views: Heart size is normal. The mediastinum is not significantly widened. There is slightly increased markings in the right lower lobe and slight blunting of the right costoph renic angle, consistent with probable small right pleural effusion IMPRESSION: Possible subtle mild right lower lobe infiltrate and small right pleural effusion DATA REPOSITORY: RADIATION DOSE DELIVERED:
== END ==
PROVIDERS: PCP Family Medicine; Visit Provider Nurse Practitioner Family
DX: R06.02 Shortness of breath (principal); R91.8 Other nonspecific abnormal finding of lung field
CPT/HCPCS: 71046

== ENCOUNTER 2023-12-02 19:53 | Emergency (ER) | payer SELFPAY ==
[2023-12-02 19:57] VITALS: BP 166/72; PULSE 65; RESP 16; TEMP 36.6; O2SAT 98
--- NOTE | 2023-12-02 20:00 | DI.RAD_ITS ---
Exam(s) XR SHOULDER RT COMPLETE 2+V EXAM: XR SHOULDER RT COMPLETE 2+V CLINICAL HISTORY: fall, shoulder pain. TECHNIQUE: 2D digital imaging was performed. COMPARISON: CR XR SHOULDER LT COMPLETE 2+V from 09/02/2021 FINDINGS: 3 views There is impacted fracture of the humeral head-neck with also fracture of the greater tuberosity. No dislocation of the glenohumeral joint. Incidentally noted are multiple healed right rib fractures and as well as deformity of the distal cla vicle consistent with prior healed fracture site. IMPRESSION: Impacted comminuted fracture of the overall head-neck also involving greater tuberosity. DATA REPOSITORY: RADIATION DOSE DELIVERED:
[2023-12-02] MEDS: Ketorolac 15 MG/ML VIAL IM (20:08)
[2023-12-02] MEDS: Acetaminophen 500 MG TAB 1000 MG PO (20:08)
[2023-12-02] MEDS: fentaNYL 100 MCG/2 ML VIAL (20:54)
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
--- NOTE | 2023-12-02 21:23 | DI.VRAD_ITS ---
PROCEDURE INFORMATION: Exam: XR Right Shoulder Exam date and time: 12/02/2023 8:32 PM Age: 63 years old Clinical indication: Injury or trauma; Blunt trauma (contusions or hematomas); Right; Patient HX: Fall, shoulder pain TECHNIQUE: Imaging protocol: Radiologic exam of the right shoulder. Views: 2 or more views. COMPARISON: CR XR CHEST 2V PA LATERAL 08/20/2023 9:19 AM FINDINGS: Bones/joints: There is a comminuted acute fracture through the right humeral neck with impaction of the humeral shaft into the humeral head. There is inferior subluxation of the humeral head with increase of the subacromial distance, likely resulting from the acute impacted fracture although a joint effusion can also produce inferior displacement of the humeral head. There is deformity of the distal right clavicle suspicious for an old fracture with possible bony bridging across the acromioclavicular joint. There are old right-sided rib fractures. Soft tissues: No gross focal soft tissue abnormality is seen. IMPRESSION: Comminuted acute fracture through the right humeral neck with impaction of the shaft into the humeral head and inferior subluxation of the humeral head relative to the glenoid fossa. Dictated and Authenticated by: Peter Duran MD. Ordering:MOLLY Bojorquez MD
--- NOTE | 2023-12-02 21:45 | DI.CT_ITS ---
Exam(s) CT UPPER EXTREMITY RT WO EXAM: CT UPPER EXTREMITY RT WO CLINICAL HISTORY: proximal humerus fracture TECHNIQUE: Imaging Protocol: Axial computed tomography images with coronal and sagittal reformatted images were created and reviewed. CONTRAST MATERIAL: Intravenous: None COMPARISON: Plain films earlier same day reviewed. FINDINGS: Bones: There is a comminuted impacted and somewhat displaced fracture of the humeral head-neck also i nvolving the greater tuberosity. There is no dislocation glenohumeral joint. There are no bone frag ments in the subacromial space and subacromial space does not appear diminished. AC joint is intact with degenerative change but no dislocation. Healed fracture deformity noted in the lateral aspect o f the ipsilateral clavicle. No fractures of the osseous glenoid evident. IMPRESSION: Acute impacted and comminuted fracture of the head-neck of the humerus. The greater tuberosity is al so fractured. There is no dislocation of the glenohumeral joint. RADIATION DOSE DELIVERED: 542.9mGy.cm Total DLP DATA REPOSITORY: All CT scans at this facility are submitted to the National Radiology Data Registry (NRDR) Dose Index Registry (DIR) with the [employer] (ACR). RADIATION OPTIMIZATION: All CT scans at this facility use at least one of these dose optimization te chniques: automated exposure control; mA and/or kV adjustment per patient size (includes targeted exa ms where dose is matched to clinical indication); or iterative reconstruction.
[2023-12-02] MEDS: oxyCODONE 10 MG TAB PO (21:56)
--- NOTE | 2023-12-02 22:50 | DI.VRAD_ITS ---
PROCEDURE INFORMATION: Exam: CT Right Upper Extremity Without Contrast, Shoulder Exam date and time: 12/02/2023 10:06 PM Age: 63 years old Clinical indication: Other: Prox humerus FX TECHNIQUE: Imaging protocol: Computed tomography of the right upper extremity without contrast. Exam focused on the shoulder. Radiation optimization: All CT scans at this facility use at least one of these dose optimization techniques: automated exposure control; mA and/or kV adjustment per patient size (includes targeted exams where dose is matched to clinical indication); or iterative reconstruction. COMPARISON: CR XR SHOULDER RT COMPLETE 2+V 12/02/2023 8:32 PM FINDINGS: Bones/joints: There is an acute comminuted displaced/impacted fracture of the neck/head of the humerus. Healed fracture deformity of the distal right clavicle. Right glenohumeral joint lipohemarthrosis. No glenohumeral joint dislocation. Soft tissues: Local soft tissue contusion. Other findings: Emphysema. IMPRESSION: 1. There is an acute comminuted displaced/impacted fracture of the neck/head of the humerus. 2. Right glenohumeral joint lipohemarthrosis. Dictated and Authenticated by: Miguel A Deng MD. Ordering:MOLLY Bojorquez MD
== END 2023-12-02 23:24 | disposition home or self-care (01) ==
PROVIDERS: Emergency Provider Student in an Organized Health Care Education/Training Program; PCP Family Medicine
DX: S42.211A Unspecified displaced fracture of surgical neck of right humerus, initial encounter for closed fracture (principal); W01.0XXA Fall on same level from slipping, tripping and stumbling without subsequent striking against object, initial encounter
CPT/HCPCS: 96372; 99283; 73030; 73200; J1885; J3010